=== PATIENT | female | born 1960 | race Caucasian/White ===

== ENCOUNTER → 2016-09-02 | Outpatient (CLI) | payer MEDICARE, OTHER ==
[~2016-09-02] MED LIST: AMIT10TA13 PO; CREO3000 PO; DICY10 PO; DILT60TA PO; METO10TA PO; NEXI40CA PO; PARO20TA PO; TRAM50TA PO; ZOFR4TAB PO; ZOFR4TAB3 SL
[2016-09-02 14:06] LABS: C. DIFF EPI 027 PRESUMPTIVE NEGATIVE (NEGATIVE); C. DIFF TOXIN PCR NEGATIVE (NEGATIVE)
== END ==
LOC: OLAB 09:28
PROVIDERS: ATTEND Internal Medicine
DX: R19.5 Other fecal abnormalities (principal)
CPT/HCPCS: 87493; 87506

== ENCOUNTER → 2017-04-28 | Outpatient (CLI) | payer MEDICARE, OTHER ==
[2017-04-28 10:05] LABS: HEMOGLOBIN 17.9 GM/DL (11.6-15.3); MEAN CELL VOLUME 93.5 FL (80.0-100.0); MEAN CORPUSCULAR HEMOGLOBIN 32.9 PG (27.0-34.0); MEAN CORPUSCULAR HGB CONC 35.2 % (32.0-36.0); MEAN PLATELET VOLUME 8.7 FL (7.0-11.0); NEUT % 68.1 % (16.0-70.0); PLATELET COUNT 214 TH/MM3 (150-450); RED BLOOD COUNT 5.45 MIL/MM3 (4.00-5.30); RED CELL DISTRIBUTION WIDTH 12.4 % (11.6-17.2); WHITE BLOOD COUNT 8.3 TH/MM3 (4.0-11.0)
[2017-04-28 10:06] LABS: AUTOMATED NEUTROPHIL # 5.6 TH/MM3 (1.8-7.7); BASOPHIL % 0.4 % (0.0-2.0); EOSINOPHIL # 0.4 TH/MM3 (0-0.4); EOSINOPHIL % 4.9 % (0.0-4.0); LYMPH % 17.5 % (9.0-44.0); LYMPHOCYTE # 1.5 TH/MM3 (1.0-4.8); MONO % 9.1 % (0.0-8.0); MONOCYTE # 0.8 TH/MM3 (0-0.9)
[2017-04-28 12:58] LABS: ALBUMIN 3.7 GM/DL (3.4-5.0); ALT (GPT) 99 U/L (10-53); AST (GOT) 59 U/L (15-37); BICARBONATE 25.4 MEQ/L (21.0-32.0); BLOOD UREA NITROGEN 6 MG/DL (7-18); CHLORIDE 104 MEQ/L (98-107); CHOLESTEROL 223 MG/DL (120-200); CREATININE 0.84 MG/DL (0.50-1.00); GLOMERULAR FILTRATION RATE 71 ML/MIN (>89); GLUCOSE,FASTING 168 MG/DL (74-99); SODIUM (NA) 138 MEQ/L (136-145)
[2017-04-28 13:06] LABS: ALKALINE PHOSPHATASE 144 U/L (45-117); CHOLESTEROL/ HDL RATIO 2.31 RATIO; FREE T4 0.88 NG/DL (0.76-1.46); HDL CHOLESTEROL 96.3 MG/DL (40.0-60.0); LDL CHOLESTEROL 104 MG/DL (0-99); TOTAL BILIRUBIN ADULT 0.7 MG/DL (0.2-1.0); TRIGLYCERIDES 113 MG/DL (42-150)
[2017-04-28 17:34] LABS: HEMOGLOBIN A1C 6.8 % (4.3-6.0)
== END ==
LOC: OLAB 09:44
PROVIDERS: ATTEND Internal Medicine
DX: I10 Essential (primary) hypertension (principal); E11.9 Type 2 diabetes mellitus without complications
CPT/HCPCS: 36415; 80053; 80061; 83036; 84439; 84443; 85025

== ENCOUNTER → 2017-08-18 | Outpatient (CLI) | payer MEDICARE, OTHER ==
[2017-08-18 11:16] LABS: AUTOMATED NEUTROPHIL # 6.1 TH/MM3 (1.8-7.7); BASOPHIL # 0.1 TH/MM3 (0-0.2); BASOPHIL % 0.6 % (0.0-2.0); EOSINOPHIL # 0.2 TH/MM3 (0-0.4); HEMATOCRIT 50.6 % (35.0-46.0); HEMOGLOBIN 17.4 GM/DL (11.6-15.3); LYMPH % 16.3 % (9.0-44.0); LYMPHOCYTE # 1.4 TH/MM3 (1.0-4.8); MEAN CELL VOLUME 92.7 FL (80.0-100.0); MEAN CORPUSCULAR HEMOGLOBIN 31.8 PG (27.0-34.0); MEAN CORPUSCULAR HGB CONC 34.3 % (32.0-36.0); MEAN PLATELET VOLUME 8.5 FL (7.0-11.0); MONO % 8.8 % (0.0-8.0); MONOCYTE # 0.8 TH/MM3 (0-0.9); NEUT % 72.3 % (16.0-70.0); PLATELET COUNT 225 TH/MM3 (150-450); RED BLOOD COUNT 5.46 MIL/MM3 (4.00-5.30); RED CELL DISTRIBUTION WIDTH 13.3 % (11.6-17.2); WHITE BLOOD COUNT 8.6 TH/MM3 (4.0-11.0)
[2017-08-18 14:28] LABS: ALBUMIN 3.8 GM/DL (3.4-5.0); AST (GOT) 181 U/L (15-37); BICARBONATE 23.2 MEQ/L (21.0-32.0); BLOOD UREA NITROGEN 8 MG/DL (7-18); CALCIUM 8.9 MG/DL (8.5-10.1); CHLORIDE 99 MEQ/L (98-107); CHOLESTEROL 271 MG/DL (120-200); GLOMERULAR FILTRATION RATE 74 ML/MIN (>89); GLUCOSE,FASTING 193 MG/DL (74-99); SODIUM (NA) 136 MEQ/L (136-145)
[2017-08-18 14:32] LABS: ALKALINE PHOSPHATASE 184 U/L (45-117); ALT (GPT) 219 U/L (10-53); CHOLESTEROL/ HDL RATIO 2.01 RATIO; HDL CHOLESTEROL 134.5 MG/DL (40.0-60.0); LDL CHOLESTEROL 120 MG/DL (0-99); TOTAL BILIRUBIN ADULT 0.6 MG/DL (0.2-1.0); TOTAL PROTEIN 8.3 GM/DL (6.4-8.2); TRIGLYCERIDES 83 MG/DL (42-150)
[2017-08-18 16:48] LABS: HEMOGLOBIN A1C 6.6 % (4.3-6.0)
== END ==
LOC: OLAB 10:21
DX: I10 Essential (primary) hypertension (principal); E11.9 Type 2 diabetes mellitus without complications
CPT/HCPCS: 36415; 80053; 80061; 83036; 85025